=== PATIENT | female | born 1995 | race Caucasian/White ===

== ENCOUNTER 2018-01-26 13:03 | Emergency (ER) | payer MEDICAID ==
[~2018-01-26] VITALS: Ht 172.7 cm; Wt 93.7 kg
[2018-01-26 13:13] VITALS: BP 158/93
--- NOTE | 2018-01-26 13:20 | NUR ---
22 YO F BIB SELF W/ C/O GENERALIZED RASH ALL OVER HER BODY THAT ITCHES X 1 MONTH. PT AAOX4, GCS 15. RR EVEN AND UNLABORED. LUNGS BL CLEAR. INTERMITTENT N/V. NO N/V AT THIS TIME. C/O ITCHING AND DISCOMFORT NO OPEN WOUNDS AT THIS TIME. ER MD MADE AWARE. NO PAIN AT . WILL CONTINUE TO MONITOR SAFETY PRECAUTIONS IN PLACE.
[2018-01-26] MEDS ORDERED: FAMOTIDINE 20 MG TAB PO ONE (14:20)
[2018-01-26] MEDS ORDERED: methylPREDNISolone SS 125 MG in WATER STERILE 2 ML IM ONE (14:20)
[2018-01-26 15:18] VITALS: BP 146/89
--- NOTE | 2018-01-26 15:19 | NUR ---
Patient discharged with v/s stable. Written and verbal after care instructions given and explained. Patient alert, oriented and verbalized understanding of instructions. Ambulatory with steady gait. All questions addressed prior to discharge. ID band removed. Patient advised to follow up with PMD. Rx of BENADRYL, PREDNISONE given. Patient educated on indication of medication including possible reaction and side effects. Opportunity to ask questions provided and answered.
== END 2018-01-26 15:19 | disposition home or self-care (01) ==
LOC: MED 13:03
DX: T78.40XA Allergy, unspecified, initial encounter (principal); R03.0 Elevated blood-pressure reading, without diagnosis of hypertension; J45.909 Unspecified asthma, uncomplicated; X58.XXXA Exposure to other specified factors, initial encounter
CPT/HCPCS: 96372; 99283; J2930; Q0163

== ENCOUNTER 2018-09-10 09:25 | Emergency (ER) | payer SELFPAY ==
[~2018-09-10] VITALS: Ht 172.7 cm; Wt 98.9 kg
[2018-09-10 09:38] VITALS: BP 139/93
[2018-09-10] MEDS ORDERED: IBUP-2213 PO (09:46)
--- NOTE | 2018-09-10 09:50 | NUR ---
PT BIB SELF WITH C/O EAR PAIN SINCE FOUR DAYS. PAIN 7/10 AT THIS TIME. HAD FEVER YESTERDAY , TOOK IBUPROFEN AT HOME. DENIES ANY N & V. NO PAST MEDICAL HISTORY. NO KNOWN ALLERGIES. PT LYING COMFORTABLY I HER BED AT THIS TIME. WILL CONTINUE TO MONITOR PT.
--- NOTE | 2018-09-10 11:00 | NUR ---
CHECKED ON THE PT. LYING COMFORTABLUY IN HER BED.
[2018-09-10] MEDS ORDERED: IBUPROFEN 600 MG TAB PO ONE (11:30)
[2018-09-10 11:33] VITALS: BP 139/93
--- NOTE | 2018-09-10 11:33 | NUR ---
Patient discharged with v/s stable. Written and verbal after care instructions given and explained. Patient alert, oriented and verbalized understanding of instructions. Ambulatory with steady gait. All questions addressed prior to discharge. ID band removed. Patient advised to follow up with PMD. Opportunity to ask questions provided and answered.
== END 2018-09-10 11:33 | disposition home or self-care (01) ==
LOC: MED 09:25
DX: J06.9 Acute upper respiratory infection, unspecified (principal); H92.01 Otalgia, right ear; J45.909 Unspecified asthma, uncomplicated; F17.210 Nicotine dependence, cigarettes, uncomplicated; Z71.6 Tobacco abuse counseling; Z79.1 Long term (current) use of non-steroidal anti-inflammatories (NSAID)
CPT/HCPCS: 81025; 99282